=== PATIENT | male | born 1970 | race Caucasian/White ===

== ENCOUNTER 2017-03-02 08:38 | Emergency (ER) | payer MEDICAID ==
[2017-03-02 08:44] VITALS: RESP 16
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
[2017-03-02] MEDS ORDERED: IOPAMIDOL (ISOVUE-300) 100 ML BTL IV ONE (09:28)
[2017-03-02] MEDS ORDERED: NS 1,000 ML IV ONE (09:40)
[2017-03-02 10:14] LABS: ANION GAP 15 mEq/L (8-16); CALCIUM 9.1 mg/dL (8.5-10.4); CARBON DIOXIDE 23 mEq/l (22-31); CHLORIDE 100 mEq/L (97-110); CREATININE 0.8 mg/dL (0.7-1.3); GLOMERULAR FILTRATION RATE > 60; GLUCOSE 87 mg/dL (70-100); POTASSIUM 4.1 mEq/L (3.5-5.2); SODIUM 138 mEq/L (134-144)
[2017-03-02] MEDS ORDERED: chlordiazePOXIDE 25 MG CAP ONE (11:38)
[2017-03-02] MEDS ORDERED: chlordiazePOXIDE 25 MG CAP PO ONE (11:41)
[2017-03-02 11:43] VITALS: O2SAT 98
[2017-03-02] MEDS ORDERED: LORazepam 2 MG/ML INJ IVP ONE (11:52)
[2017-03-02] MEDS ORDERED: CHLORDIAZEPOXIDE 25MG PREPK#6 BTL TAKEHOME ONE (13:19)
[2017-03-02 13:26] VITALS: BP 133/76; PULSE 86; TEMP 97.7
== END 2017-03-02 13:26 | disposition home or self-care (01) ==
DX: S16.1XXA Strain of muscle, fascia and tendon at neck level, initial encounter (principal); S30.1XXA Contusion of abdominal wall, initial encounter; S09.90XA Unspecified injury of head, initial encounter; F10.21 Alcohol dependence, in remission; Z86.73 Personal history of transient ischemic attack (TIA), and cerebral infarction without residual deficits; Z79.01 Long term (current) use of anticoagulants; V48.5XXA Car driver injured in noncollision transport accident in traffic accident, initial encounter; Y92.410 Unspecified street and highway as the place of occurrence of the external cause
CPT/HCPCS: 82947-QW; 96374; J2060; Q9967